=== PATIENT | male | born 1945 | race Caucasian/White ===

== ENCOUNTER 2017-03-31 07:49 | Outpatient (CLI) ==
[2014-09-02 13:01] VITALS: BMI 28.5
[2017-03-31 09:11] LABS: BASOPHILS % (AUTO) 0.5 % (0.0-3.0); EOSINOPHILS # (AUTO) 0.2 K/ul (0.0-0.7); EOSINOPHILS % (AUTO) 3.4 % (0.0-7.0); HEMATOCRIT 41.6 % (42.0-52.0); HEMOGLOBIN 14.6 g/dl (14.0-18.0); IMMATURE GRANULOCYTE % (AUTO) 0.2 % (0.0-5.0); LYMPHOCYTES % (AUTO) 34.3 (10.0-50.0); MEAN CORPUSCULAR HEMOGLOBIN 31.5 pg (27.0-31.0); MEAN CORPUSCULAR HGB CONC 35.1 (31.8-35.4); MEAN CORPUSCULAR VOLUME 89.7 fl (80.0-94.0); MONOCYTES # (AUTO) 0.5 K/uL (0.4-2.0); MONOCYTES % (AUTO) 9.1 (0-10); NEUTROPHILS # (AUTO) 3.1 K/ul (2.0-6.9); NEUTROPHILS % (AUTO) 52.5; PLATELET COUNT 256 10^3/uL (140-440); RED BLOOD COUNT 4.64 10^6/ul (4.70-6.10); WHITE BLOOD COUNT 5.81 K/ul (4.2-10.2)
[2017-03-31 09:33] LABS: ALBUMIN 3.8 g/dL (3.4-5.0); ALBUMIN/GLOBULIN RATIO 1.12; ANION GAP 15.9; BILIRUBIN,DIRECT 0.13 mg/dL (0.00-0.30); BILIRUBIN,TOTAL 0.41 mg/dL (0.00-1.20); BUN/CREATININE RATIO 13.59; CALCIUM 9.3 mg/dL (8.2-10.2); CREATININE 1.03 mg/dL (0.60-1.10); PHOSPHORUS 3.3 mg/dL (2.3-3.7); POTASSIUM 4.9 mmol/L (3.5-5.1); TOTAL PROTEIN 7.2 g/dL (5.8-8.1)
[2017-03-31 12:19] LABS: CHOL/HDL RATIO 6.8 (4.5-6.4)
== END 2017-03-31 07:50 | disposition home or self-care (01) ==
LOC: LAB 07:49
PROVIDERS: ATTEND Nurse Practitioner
DX: N39.43 Post-void dribbling (principal); R31.9 Hematuria, unspecified; Z00.00 Encounter for general adult medical examination without abnormal findings; Z12.5 Encounter for screening for malignant neoplasm of prostate
CPT/HCPCS: 36415; 80053; 80061; 82248; 84100; 84443; 85025

== ENCOUNTER 2017-04-01 12:13 | Outpatient (CLI) ==
[2014-09-02 13:01] VITALS: BMI 28.5
[2017-04-01 12:44] LABS: BILIRUBIN,URINE Negative (NEGATIVE); KETONES,URINE Negative (NEGATIVE); LEUKOCYTE ESTERASE ,URINE Negative (NEGATIVE); NITRITE,URINE Negative (NEGATIVE); PROTEIN,URINE Trace (NEGATIVE); URINE, BLOOD 1+ (NEGATIVE)
[2017-04-01 12:55] LABS: ADD URINE MICROSCOPIC YES
[2017-04-01 13:03] LABS: BACTERIA,URINE TRACE (NOT PRESENT)
== END 2017-04-01 12:14 | disposition home or self-care (01) ==
LOC: LAB 12:13
PROVIDERS: ATTEND Nurse Practitioner
DX: N39.43 Post-void dribbling (principal); R31.9 Hematuria, unspecified; R53.83 Other fatigue; Z00.00 Encounter for general adult medical examination without abnormal findings
CPT/HCPCS: 36415; 81001

== ENCOUNTER 2017-12-07 07:36 | Outpatient (CLI) ==
[2014-09-02 13:01] VITALS: BMI 28.5
--- NOTE | 2017-12-07 09:37 | US ---
EXAM: Ultrasound abdomen complete. HISTORY: Abdominal pain TECHNIQUE: Ultrasound and limited doppler evaluation of the enitre abdomen was performed. COMPARISON: None FINDINGS: The liver is normal in echogenicity and measures 15.5 cm in length. The portal vein is keller nt. The gallbladder demonstrates no stones or sludge. Gallbladder wall measures 0.3 cm. Common edmar e duct measures 0.4 cm in diameter. The pancreas is unremarkable. The aorta and IVC are unremarkabl e. There is normal wave spectral analysis. The spleen is normal in echogenicity and measures 8.9 cm i n length. The right kidney measures 10.8 x 6.4 x 5.6 cm with cortical thickness of 1.9 cm. There is normal ech ogenicity and Doppler flow. There is no visualized stone or hydronephrosis. There is an anechoic rig ht renal cyst measuring 2.4 7 meters in diameter. The left kidney measures 11.7 x 4.8 x 4.8 cm with renal cortical thickness of 1.5 cm. There is norm al echogenicity and color Doppler flow. There is no stone, cyst or hydronephrosis. Urinary bladder is normal. IMPRESSION: 1. No acute intra-abdominal abnormality to account for patient's symptoms. 2. Anechoic right renal cyst.
== END 2017-12-07 07:37 | disposition home or self-care (01) ==
LOC: RAD 07:36
PROVIDERS: ATTEND Nurse Practitioner
DX: R10.9 Unspecified abdominal pain (principal)

== ENCOUNTER 2018-05-02 15:05 | Outpatient (CLI) ==
[2014-09-02 13:01] VITALS: BMI 28.5
--- NOTE | 2018-05-03 09:49 | DI ---
EXAM: Two views of the right hip HISTORY: Chronic right hip. COMPARISON: none FINDINGS: There is mild narrowing of the right hip joint space. There is no lytic or blastic lesion. There is no displaced fracture or dislocation. The soft tissues are unremarkable. IMPRESSION: Mild degenerative change of the right hip with no displaced fracture or dislocation.
== END 2018-05-02 15:06 | disposition home or self-care (01) ==
LOC: RAD 15:05
PROVIDERS: ATTEND Nurse Practitioner
DX: M25.551 Pain in right hip (principal)

== ENCOUNTER 2018-11-02 07:58 | Outpatient (CLI) ==
[2014-09-02 13:01] VITALS: BMI 28.5
== END 2018-11-02 07:59 | disposition home or self-care (01) ==
LOC: LAB 07:58
PROVIDERS: ATTEND Nurse Practitioner
DX: E78.2 Mixed hyperlipidemia (principal); M25.551 Pain in right hip; R10.11 Right upper quadrant pain
CPT/HCPCS: 36415; 80053; 82150; 83690; 85025

== ENCOUNTER 2018-11-03 08:54 | Outpatient (CLI) ==
[2014-09-02 13:01] VITALS: BMI 28.5
--- NOTE | 2018-11-03 10:51 | CT ---
EXAM: CT ABDOMEN AND PELVIS HISTORY: Right upper quadrant pain. TECHNIQUE: CT abdomen and pelvis with and without intravenous contrast. Images were reconstructed u sing 5 mm section thickness. Reformations were prepared. 75 mL Omnipaque. COMPARISON: None FINDINGS: Liver and spleen are unremarkable. Gallbladder is decompressed. Cannot completely exclude mild gall bladder wall thickening. No surrounding stranding. Pancreas and adrenal glands appear normal. Ther e is a posterior mid pole 2.3 cm cystic mass of the right renal cortex with near water attenuation pr obably representing a cyst. This can be correlated with dedicated renal ultrasound. There is mild t o moderate atherosclerotic disease. Small hiatal hernia. There is a proximal duodenal diverticulum measuring 3.8 cm with no convincing e vidence of leakage. Patient has a history of appendectomy. Bowel gas pattern is normal. There is m oderate distal colon diverticulosis. No prostate enlargement. Urinary bladder appears normal. Ther e is no ascites. No ventral hernia. Degenerative changes of the spine. The lung bases reveal a 6.6 mm nodule without definite calcification posteriorly on the right. No pneumoperitoneum. IMPRESSION: 1. Cannot completely exclude mild gallbladder wall thickening. Consider correlation with ultrasound if indicated. 2. Duodenal diverticulum. 3. Hiatal hernia. 4. Probable right renal cyst. 5. Atherosclerotic disease. 6. There is a small nodule in the right lung base. Consider follow-up CT thorax.
== END 2018-11-03 08:55 | disposition home or self-care (01) ==
LOC: RAD 08:54
PROVIDERS: ATTEND Nurse Practitioner
DX: R10.11 Right upper quadrant pain (principal)

== ENCOUNTER 2018-11-21 06:43 | Outpatient (CLI) ==
[2014-09-02 13:01] VITALS: BMI 28.5
--- NOTE | 2018-11-21 08:32 | US ---
EXAM: RENAL ULTRASOUND, BILATERAL HISTORY: Renal mass on CT FINDINGS: Ultrasound renal, bilateral. Rushing-scale ultrasound and color Doppler imaging was performe d. The right kidney measures 11.2 x 5.5 x 5.5 centimeters. The left kidney measures 12.6 x 5.4 x 4.3 centimeters. There is a 2.8 cm simple cortical cyst of the right kidney corresponding to a similar finding on rece nt CT abdomen and pelvis. No evidence of cyst complexity. This cyst is stable since prior ultrasoun d of the abdomen dated 12/07/2017. No other renal masses are identified. There is no hydronephrosis . General cortical volume and echogenicity are within normal limits. Urinary bladder was grossly un remarkable. IMPRESSION: 1. Simple right renal cortical cyst.
--- NOTE | 2018-11-21 08:55 | CT ---
EXAM: CT chest without contrast HISTORY: Right lung nodule COMPARISON: CT abdomen pelvis 11/03/2018 TECHNIQUE: CT chest performed without intravenous contrast. Coronal and sagittal reformatted images obtained. FINDINGS: Thyroid and thoracic inlet appear normal. Heart normal in size. Coronary calcifications. No pericardial effusion. Aorta normal in caliber. Mild to moderate atherosclerosis. Small hiatal hernia. Evaluation for lymphadenopathy limited without contrast. No lymphadenopathy identified. C alcified right hilar lymph nodes, consistent with old granulomatous disease. Visualized portion uppe r abdomen demonstrates no acute abnormality. Right renal cyst measures 2.7 cm. No acute abnormaliti es of the bones. Degenerative change in the spine. Central airway patent. No pleural effusion or p neumothorax. 7 mm pulmonary nodule right lung base image 44. 5 mm nodule versus scarring right lung image 34. 2 mm nodule right lung image 31. 2 mm pulmonary nodule left lung image 33. Mild right ba silar subsegmental atelectasis and/or scarring. IMPRESSION: 1. Several pulmonary nodules measuring up to [address] chest follow-up recommended in 6 months. 2. Mild right basilar subsegmental atelectasis and/or scarring. 3. Coronary calcifications.
== END 2018-11-21 06:44 | disposition home or self-care (01) ==
LOC: RAD 06:43
PROVIDERS: ATTEND Nurse Practitioner
DX: R91.1 Solitary pulmonary nodule (principal); N28.89 Other specified disorders of kidney and ureter